=== PATIENT | male | born 1985 | race Caucasian/White ===

== ENCOUNTER 2022-04-10 21:05 | Emergency (ER) | payer OTHER, SELFPAY ==
--- NOTE | ~2022-04-10 | XR_ITS ---
EXAM: XR hand LT min 3V DATE: 04/10/2022 21:53 HISTORY: hand injury, LACERATION TO POSTERIOR SIDE OF 2ND METACARPAL . COMPARISON: None available. FINDINGS: Normal mineralization. No fracture or dislocation. No lytic or blastic lesion. Joint space s are maintained. No erosion or periosteal change. Soft tissues within normal limits. IMPRESSION: No acute osseous finding in the left hand. Reviewed, dictated and finalized at location K.
[2022-04-10 21:31] VITALS: BP 134/80; PULSE 64; RESP 18; O2SAT 96
--- NOTE | 2022-04-10 22:51 | ED.WOUNDLAC ---
HPI - Wound/Laceration General Chief Complaint: Wound/Laceration Stated Complaint: left wrist laceration Time Seen by Provider: 04/10/22 22:02 History of Present Illness HPI narrative: 36-year-old male presents today with bleeding from the left hand. Patient has a pair of underwear tied to left wrist for tourniquet. Patient states he was working on a car trying to force to exhaust pipes together when they exacerbate cut the top of his hand. Bleeding not controlled. CMS intact. Patient with full range of motion to left hand. Patient up-to-date on tetanus Related Data Allergies Allergy/AdvReac Type Severity Reaction Status Date / Time venom-honey bee Allergy Severe Confusion Verified 04/10/22 21:08 Penicillins Allergy Unknown Unknown Verified 04/10/22 21:08 Review of Systems Review of Systems: CONSTITUTIONAL: Denies fever, chills, or sweats. EYES: Denies visual changes, redness, or discharge. ENT: Denies rhinorrhea, congestion, sore throat, or otalgia. CARDIOVASCULAR: Denies chest pain, palpitations, or edema. RESPIRATORY: Denies cough or dyspnea. GASTROINTESTINAL: Denies abdominal pain, nausea, vomiting, or diarrhea. GENITOURINARY: Denies dysuria or hematuria. SKIN: Laceration left hand. Denies rash or itching. MUSCULOSKELETAL: Denies back pain, joint pain, or myalgia. NEUROLOGIC: Denies headache, numbness, dizziness, or weakness. PSYCHIATRIC: Denies anxiety or depression. PMFSH Social History Social History Smoking status: Light tobacco smoker Alcohol intake: current Exam Narrative: GENERAL: Well-appearing, well-nourished, and in no acute distress. HEAD: Normocephalic, atraumatic. EYES: PERRLA and EOMI. ENT: Nares clear, no rhinorrhea or epistaxis. Mucous membranes moist. Oropharynx without tonsillar hypertrophy exudate or other lesions. Bilateral TMs pearly baxter nonbulging NECK: Supple. No adenopathy or masses. No carotid bruits or JVD CHEST: Clear to auscultation. No respiratory distress. No wheezes rales or rhonchi HEART: Regular rate and rhythm. No murmur heard. Normal peripheral pulses. ABDOMEN: Soft, nontender, nondistended, normal active bowel sounds. EXTREMITIES: Normal range of motion. No edema. SKIN: Approximate 6 to 7 cm irregularly shaped laceration to left dorsal hand. Bleeding not controlled at time of assessment. Tourniquet in place during assessment. Cauterization used to control bleeding. Tourniquet removed. No further bleeding noted. Able to explore wound bed. No obvious contamination noted. Patient with full range of motion. Laceration repair as documented. NEURO: No focal deficits. Alert and oriented x3. PSYCH: Normal mood and affect. Course Course Emergency Course: Upon original assessment bleeding was not controlled. Tourniquet had been previously applied by patient's family member. Bleeding controlled by cauterizing. Tourniquet removed. CMS intact. Laceration repaired with sutures per documentation. Patient tolerated well. Will discharge home with p.o. antibiotics and plan follow-up for suture removal. Vital Signs Vital signs: Vital Signs Pulse Rate 64 04/10/22 21:31 Respiratory Rate 18 04/10/22 21:31 Blood Pressure 134/80 04/10/22 21:31 Pulse Oximetry 96 04/10/22 21:31 Pulse Rate 60 04/10/22 23:10 Respiratory Rate 14 04/10/22 23:10 Blood Pressure 110/59 L 04/10/22 23:10 Pulse Oximetry 98 04/10/22 23:10 Procedures Laceration Laceration 1: Date: 04/10/22 Time: 21:30 Site: upper extremity (left hand dorsal side near 2 mcp) Size (cm): 6 Description: irregular Depth: simple, single layer Local Anesthetic: lidocaine 1% and with epi Amount of anesthesia used (mL): 4 ====== Skin Level ====== Skin layer closed with: nylon Size (cm): 6-0 Number of sutures: 6 Technique: simple, interrupted ====== Subcutaneous Layer ====== ====== Muscle Layer
[2022-04-10] MEDS: SULFAMETHOXAZOLE/TRIMETHOPRIM 800/160 MG DS TABLET 1 TAB PO (23:03)
[2022-04-10] MEDS: IBUPROFEN 400 MG TABLET 800 MG PO (23:04)
[2022-04-10 23:10] VITALS: BP 110/59; PULSE 60; RESP 14; O2SAT 98
== END 2022-04-10 23:10 | disposition home or self-care (01) ==
PROVIDERS: Emergency Provider Nurse Practitioner Family
DX: S61.412A Laceration without foreign body of left hand, initial encounter (principal); F17.200 Nicotine dependence, unspecified, uncomplicated; W26.8XXA Contact with other sharp object(s), not elsewhere classified, initial encounter
CPT/HCPCS: 12002; 73130; 99283; A9270

== ENCOUNTER 2023-11-17 11:35 | Emergency (ER) | payer SELFPAY ==
--- NOTE | ~2023-11-17 | XR_ITS ---
EXAMINATION: XR chest 2V DATE: 11/17/2023 12:38 INDICATION: Left chest pain. TECHNIQUE: Frontal and lateral views of the chest were obtained. COMPARISON: None. FINDINGS: There is no pneumonia, pleural effusion, or pneumothorax. The heart size is normal. IMPRESSION: 1. No acute cardiopulmonary disease. Reviewed, dictated and finalized at location A.
--- NOTE | ~2023-11-17 | XR_ITS ---
EXAM: XR shoulder LT min 2V DATE: 11/17/2023 14:55 HISTORY: pain in L shoulder AND CHEST NO INJURY X1 WEEK . COMPARISON: None available. FINDINGS: Normal mineralization. No fracture or dislocation. No lytic or blastic lesion. Joint space s are maintained. No erosion or periosteal change. Soft tissues within normal limits. IMPRESSION: No acute osseous finding in the left shoulder. Reviewed, dictated and finalized at location K.
--- NOTE | 2023-11-17 11:44 | ECG_ITS ---
Measurements Intervals [place] Rate: 88 P: 69 IL: 161 QRS: 65 QRSD: 90 T: 62 QT: 317 QTc: 385 Interpretive Statements SINUS RHYTHM WITH SINUS ARRHYTHMIA NORMAL ELECTROCARDIOGRAM NO PREVIOUS ECG AVAILABLE FOR COMPARISON Electronically Signed On 11-17-2023 13:17:14 CDT by Khanh Yap M.D.
[2023-11-17 11:54] VITALS: BP 135/68; PULSE 74; RESP 18; TEMP 36.8; O2SAT 97
[2023-11-17 12:10] LABS: Basophils Percent Auto 0.3 % (0.2-1.2); Eosinophils Percent Auto 0.3 % (0-4.4); Hematocrit 46.5 % (42.0-52.0); Hemoglobin 16.3 g/dL (14.0-18.0); Immature Granulocyte Absolute 0.03 K/mm3 (0.00-0.031); Immature Granulocyte Percent A 0.3 % (0-0.5); Lymphocytes Absolute Auto 1.36 K/mm3 (0.9-3.2); Lymphocytes Percent Auto 11.5 % (18.3-44.2); Mean Corpuscular HGB Conc 35.1 g/dl (32-36); Mean Corpuscular Hemoglobin 31.7 pg (26-34); Mean Corpuscular Volume 90.3 fl (80-100); Mean Platelet Volume 10.2 fl (7.4-10.4); Monocytes Absolute Auto 0.4 K/mm3 (0.1-0.6); Monocytes Percent Auto 3.6 % (2.6-8.5); Neutrophils Absolute Auto 9.9 K/mm3 (1.3-6.7); Platelet Count Result 234 k/mm3 (150-375); Red Blood Count 5.15 M/mm3 (4.6-6.20); Red Cell Distribution Width 12.2 % (11.5-14.5); White Blood Count 11.8 K/mm3 (4.5-10.0)
[2023-11-17 12:22] LABS: INR 0.9; Prothrombin Time 12.9 Seconds (11.1-14.7)
[2023-11-17 12:23] LABS: Partial Thromboplastin Time 31.3 Seconds (22.3-36.8)
[2023-11-17 12:24] LABS: Alanine Aminotransferase 28 U/L (6-50); Albumin Level 4.8 g/dL (3.5-5.1); Alkaline Phosphatase 88 U/L (38-126); Anion Gap 6 mmol/L (4-12); Aspartate Amino Transferase 31 U/L (17-59); Bilirubin,Total 1.1 mg/dL (0.2-1.3); Blood Urea Nitrogen 14 mg/dL (9-20); Calcium 9.3 mg/dL (8.4-10.2); Carbon Dioxide 27 mmol/L (22-30); Chloride 106 mmol/L (98-107); Estimated CRCL calculation 76 ml/min; Estimated Glomerular Filt Rate > 60; Glucose 94 mg/dL (65-110); Lipase 49 U/L (23-300); Potassium 3.7 mmol/L (3.4-5.0); Sodium 139 mmol/L (137-145)
[2023-11-17 12:34] LABS: Troponin I < 0.012 ng/mL (0.000-0.034)
[2023-11-17 13:55] VITALS: BP 122/69; PULSE 63; RESP 18; TEMP 36.8; O2SAT 99
--- NOTE | 2023-11-17 14:38 | ED.CHESTPAIN ---
HPI - Chest Pain General Chief Complaint: Chest Pain Stated Complaint: sob, left shoulder pain Time Seen by Provider: 11/17/23 14:51 Source: patient Mode of arrival: ambulatory Limitations: no limitations History of Present Illness HPI narrative: Patient is a 38-year-old male who presents the ED with report of left-sided chest pain. 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 He has had intermittent pain in his left shoulder since then. Yesterday, he woke up in the pain began radiating into his left-sided chest and down his left upper arm. Pain occurred today and seem to be worse, which prompted his presentation. States pain is worse with movement. Has taken Tylenol for the pain without much relief. Denies shortness of breath or pleuritic pain. Denies lower extremity pain or swelling. Denies recent cough or cold symptoms. Denies HTN, HLD, DM. He is a smoker. Denies FHx of cardiac disease in immediate family members. Patient does have history of anxiety and is not currently on any medication. Related Data Allergies Allergy/AdvReac Type Severity Reaction Status Date / Time venom-honey bee Allergy Severe Confusion Verified 04/10/22 21:08 Penicillins Allergy Unknown Unknown Verified 04/10/22 21:08 Review of Systems Review of Systems: CONSTITUTIONAL: Denies fever, chills, or sweats. ENT: Denies rhinorrhea, congestion, sore throat. CARDIOVASCULAR: See HPI. RESPIRATORY: Denies cough or dyspnea. GASTROINTESTINAL: Denies abdominal pain, nausea, vomiting MUSCULOSKELETAL: See HPI. NEUROLOGIC: Denies headache, dizziness, numbness, or weakness. PSYCHIATRIC: see HPI All systems reviewed & are unremarkable except as noted in HPI and below PMFSH Social History Social History Smoking status: Light tobacco smoker Alcohol intake: current Exam Narrative: GENERAL: Well appearing, well-nourished, non-toxic, in no acute distress. HEAD: Normocephalic, atraumatic. RESPIRATORY: Airway patent, respirations nonlabored. Clear to auscultation bilaterally, no rales, rhonchi, wheezing. CARDIOVASCULAR: Regular rate and rhythm without murmurs, rubs, or gallops. MUSCULOSKELETAL: Moves all extremities. No gross deformities. Tenderness to palpation over left upper anterior chest wall and left anterior shoulder joint, reproducing pain. Mild limited range of motion of left shoulder abduction past 90 due to pain. SKIN: Warm, dry, normal color. NEURO: A&O X3. Speech clear. Cranial nerves II-XII grossly intact. Steady gait. No ataxic movements. PSYCHIATRIC: Anxious, fidgety. Normal interaction. Course Vital Signs Vital signs: Vital Signs Temperature 98.2 F 11/17/23 11:54 Pulse Rate 74 11/17/23 11:54 Respiratory Rate 18 11/17/23 11:54 Blood Pressure 135/68 11/17/23 11:54 Pulse Oximetry 97 11/17/23 11:54 Oxygen Delivery Room Air 11/17/23 11:54 Temperature 98.2 F 11/17/23 13:55 Pulse Rate 65 11/17/23 16:04 Respiratory Rate 18 11/17/23 16:04 Blood Pressure 130/70 11/17/23 16:04 Pulse Oximetry 100 11/17/23 16:04 Oxygen Delivery Room Air 11/17/23 11:54 MDM - Chest Pain MDM Narrative Medical decision making narrative: HEART score =1 based on smoking. Patient without any other significant risk factors for ACS. Troponin negative X2. Low suspicion for ACS. CXR clear. PERC negative. Low suspicion for acute PE. No evidence of DVT on exam. Remainder basic laboratory studies were unremarkable. Suspicious for muscular strain/musculoskeletal etiology. Also suspect that anxiety is contributing to symptoms. Shoulder x-ray was negative. Patient did report improvement of symptoms after receiving Toradol in the ED. Discussed continuing anti-inflammatories at home, will prescribe a few muscle relaxers. Advised patient have close follow-up with his primary care doctor for taya
[2023-11-17] MEDS: KETOROLAC (*BKC) 60 MG/2 ML VIAL IM (15:32)
[2023-11-17 15:47] LABS: Troponin I < 0.012 ng/mL (0.000-0.034)
[2023-11-17 16:04] VITALS: BP 130/70; PULSE 65; RESP 18; O2SAT 100
== END 2023-11-17 16:22 | disposition home or self-care (01) ==
LOC: ANHED 16:07
PROVIDERS: Family Medicine; Emergency Provider Physician Assistant; Referring Provider Family Medicine
DX: S46.912A Strain of unspecified muscle, fascia and tendon at shoulder and upper arm level, left arm, initial encounter (principal); R07.89 Other chest pain; F17.200 Nicotine dependence, unspecified, uncomplicated; X50.9XXA Other and unspecified overexertion or strenuous movements or postures, initial encounter
CPT/HCPCS: 36415; 71046; 73030; 80053; 83690; 84484; 85025; 85610; 85730; 93005; 96372; 99284; J1885